=== PATIENT | female | born 1975 | race Caucasian/White ===

== ENCOUNTER 2020-10-13 13:13 | Emergency (ER) | payer MEDICAID ==
[~2020-10-13] VITALS: Ht 172.7 cm; Wt 160.0 kg
[2020-10-13 13:37] VITALS: BP 153/77; Ht 172.7 cm; Wt 160.0 kg
[2020-10-13] MEDS ORDERED: TOPROL XL100 MG PO (13:40)
[2020-10-13] MEDS ORDERED: METHOCARBAMOL500 MG PO (13:40)
[2020-10-13] MEDS ORDERED: SINGULAIR10 MG PO (13:41)
[2020-10-13] MEDS ORDERED: HCTZ25 MG PO (13:41)
[2020-10-13] MEDS ORDERED: FLUTICASONE PRO16 GM NASAL (14:32)
== END 2020-10-13 15:03 | disposition home or self-care (01) ==
LOC: D.ER 13:13
DX: J30.9 Allergic rhinitis, unspecified (principal)